=== PATIENT | male | born 1995 ===

== ENCOUNTER 2018-01-30 16:17 | Emergency (ER) | payer OTHER ==
[~2018-01-30] VITALS: Ht 175.3 cm; Wt 90.0 kg
[2018-01-30 16:25] VITALS: BP 174/88; PULSE 109; RESP 16
[2018-01-30] MEDS ORDERED: TYLE325T PO (17:22)
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
[2018-01-30] MEDS: ACETAMINOPHEN/HYDROcodone 325 MG/5 MG TAB PO ONE (17:45)
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
== END 2018-01-30 19:26 | disposition home or self-care (01) ==
LOC: NEPK 16:17
DX: M79.652 Pain in left thigh (principal); M25.462 Effusion, left knee; Z88.0 Allergy status to penicillin
CPT/HCPCS: 72170; 73552; 73564; 99283; E0113; L1830